=== PATIENT | male | born 1985 | race Caucasian/White ===

== ENCOUNTER 2018-05-16 16:28 | Emergency (ER) | payer SELFPAY ==
[2018-05-16 16:42] VITALS: BP 133/89; PULSE 99; RESP 18; TEMP 99.4; O2SAT 100
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
[2018-05-16] MEDS ORDERED: Bacitracin Opht OINT 3.5GM OD STA (16:59)
== END 2018-05-16 17:15 | disposition home or self-care (01) ==
LOC: C.ER 16:28
DX: H11.31 Conjunctival hemorrhage, right eye (principal)